=== PATIENT | male | born 1995 | race Caucasian/White ===

== ENCOUNTER 2022-03-17 14:28 | Emergency (ER) | payer OTHER ==
[~2022-03-17] VITALS: Ht 177.8 cm; Wt 72.6 kg
[2022-03-17 14:46] VITALS: BP 120/70
--- NOTE | 2022-03-17 14:51 | NUR ---
AT BEDSIDE FOR EVAL.
[2022-03-17] MEDS ORDERED: LORAZEPAM 1 MG TABLET PO ONE (15:00)
[2022-03-17] MEDS ORDERED: LORAZEPAM 1 MG TABLET ONE (15:04)
[2022-03-17] MEDS ORDERED: HYDR-500 PO (15:59)
--- NOTE | 2022-03-17 16:08 | NUR ---
Patient discharged to home in stable condition. Written and verbal after care instructions given. Patient verbalizes understanding of instruction.
== END 2022-03-17 16:10 | disposition home or self-care (01) ==
LOC: ER 14:31
DX: F41.9 Anxiety disorder, unspecified (principal); Z79.899 Other long term (current) drug therapy